=== PATIENT | female | born 1980 | race Two or more races ===

== ENCOUNTER → 2017-08-28 | Day surgery (SDC) | payer OTHER ==
[~2017-08-28] MED LIST: INTESTINEX1 CAP PO; LEVSIN/SL0.125 MG PO; PROTONIX40 MG
== END | disposition home or self-care (01) ==
LOC: CIR.AMB 04:45 → SURH 12:27 → EDSTATUS 12:29 → CIR.AMB 12:29
DX: K80.10 Calculus of gallbladder with chronic cholecystitis without obstruction (principal)

== ENCOUNTER 2020-08-11 | Outpatient (CLI) | payer OTHER | END 2020-08-11 15:34 | disposition home or self-care (01) | LOC: PPH VACUNA → PPHC | DX: Z23 Encounter for immunization (principal) ==